=== PATIENT | male | born 1975 | race Caucasian/White ===

== ENCOUNTER → 2024-04-14 13:01 | Outpatient (BNVA) | payer OTHER, SELFPAY | PROVIDERS: Referring Provider Nurse Practitioner Family; Visit Provider Physician Assistant | DX: M75.42 Impingement syndrome of left shoulder | CPT/HCPCS: 73030 ==

== ENCOUNTER 2024-11-02 14:54 | Outpatient (CLI) | payer OTHER, SELFPAY ==
--- NOTE | 2024-11-02 15:03 | MR_ITS ---
WS: [id number] MRI LEFT KNEE HISTORY: PAIN IN LEFT KNEE COMPARISON: None available. Anterior cruciate ligament: Thickening and increased T2 signal in the ACL. This is most consistent wi th mucoid degeneration. Posterior cruciate ligament: Intact. Medial collateral ligament: Small amount of edema adjacent to the proximal MCL near the adductor tube rcle of the femur. No full-thickness tear. Posterior lateral corner structures: Intact. Medial menisci: Intact. Normal signal, size and shape. Lateral meniscus: Intact. Normal signal, size and shape. Extensor mechanism: Distal quadriceps tendon and patellar tendons are intact. Fluid and soft tissue: No joint effusion. Tiny amount of fluid in the Borges's cyst. Osseous and articular structures: Patellofemoral compartment: Mild chondromalacia along the lateral patellar facet. No marrow edema. Medial compartment: Mild narrowing of the medial compartment. Cartilage is intact. Focal marrow edema along the nonweightbearing surface of the medial femoral condyle involving the adductor tubercle. Th ere is cortical irregularity and suspicious for an avulsion fracture from the posterior femoral condy le. Lateral compartment: Normal. MR/MR knee LT wo con* [id number] IMPRESSION: 1. 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 2. Focal marrow edema in the adductor tubercle of the LEFT femur with a small amount of edema in the proximal MCL. Edema and cortical avulsions from the post erior medial femoral condyle. There does appear to be an osseous avulsion fract ure associated with the edema. Avulsion measures 1.5 x 0.7 cm. There is a small amount of associated marrow edema and soft tissue edema. CT evaluation may be helpful to evaluate the extent of bony fragment. This may be an unstable avulsi on fracture. Patient denied any history of recent trauma.
== END 2024-11-02 14:55 | disposition home or self-care (01) ==
LOC: RAD 14:57
PROVIDERS: PCP Nurse Practitioner Family; Visit Provider Nurse Practitioner Family
DX: M23.612 Other spontaneous disruption of anterior cruciate ligament of left knee (principal); R53.1 Weakness; R93.6 Abnormal findings on diagnostic imaging of limbs
CPT/HCPCS: 73721

== ENCOUNTER → 2024-11-15 09:57 | Outpatient (BNVA) | payer OTHER, SELFPAY | PROVIDERS: PCP Nurse Practitioner Family; Visit Provider Student in an Organized Health Care Education/Training Program | DX: M25.562 Pain in left knee (principal); S72.432A Displaced fracture of medial condyle of left femur, initial encounter for closed fracture; X50.9XXA Other and unspecified overexertion or strenuous movements or postures, initial encounter | CPT/HCPCS: 73560; 73565 ==

== ENCOUNTER 2024-11-15 11:52 | Outpatient (CLI) | payer OTHER, SELFPAY | END 2024-11-15 11:53 | disposition home or self-care (01) | LOC: SPT 11:53 | PROVIDERS: PCP Nurse Practitioner Family; Visit Provider Student in an Organized Health Care Education/Training Program | DX: Z46.89 Encounter for fitting and adjustment of other specified devices (principal); S72.492D Other fracture of lower end of left femur, subsequent encounter for closed fracture with routine healing; X58.XXXD Exposure to other specified factors, subsequent encounter | CPT/HCPCS: L1812 ==

== ENCOUNTER 2024-11-24 13:16 | Outpatient (CLI) | payer OTHER, SELFPAY ==
--- NOTE | 2024-11-24 13:30 | CT_ITS ---
WS: [id number] CT LEFT KNEE, NONCONTRAST HISTORY: avulsion fracture femur Technique: All CT scans at [facility] use at least one of these dose optimization techniques: automated exposure control; mA and/or kV adjustment per patient size (includes targeted exams where dose is matched to clinical indication); or iterative reconstruction. DLP: 497.52 mGy.cm COMPARISON: MRI 11/02/2021, knee radiograph 11/15/2024 No acute avulsion fracture is noted involving the medial femoral condyle. There is cortical surface irregularity and slight concave appearance. This could potentially be a prior fracture site which has healed. No avulsion fracture is identified. There are small osseous sclerotic foci associated with the concavity. No significant amount of soft tissue edema and there is no joint effusion. Small bone island in the lateral tibial metaphysis. CT/CT knee LT wo con* [id number] IMPRESSION: 1. No acute avulsion fractures are identified involving the medial femoral con dyle as suspected on MRI. 2. There is slight concavity and increased cortical sclerosis in the femoral c ondyle. This may be from an old remote trabecular injury. No edema is noted on the CT examination.
== END 2024-11-24 13:17 | disposition home or self-care (01) ==
LOC: RAD 13:18
PROVIDERS: PCP Nurse Practitioner Family; Visit Provider Student in an Organized Health Care Education/Training Program
DX: S72.492A Other fracture of lower end of left femur, initial encounter for closed fracture (principal); X58.XXXA Exposure to other specified factors, initial encounter; R93.6 Abnormal findings on diagnostic imaging of limbs
CPT/HCPCS: 73700

== ENCOUNTER 2025-01-05 06:00 | Outpatient (RCR) | payer OTHER, SELFPAY | END 2025-01-16 23:59 | disposition home or self-care (01) | LOC: MPT 06:00 | PROVIDERS: Visit Provider Orthopaedic Surgery | DX: S72.43 Fracture of medial condyle of femur (principal); X58.XXXD Exposure to other specified factors, subsequent encounter | CPT/HCPCS: 97162 ==